=== PATIENT | female | born 1975 ===

== ENCOUNTER 2018-10-30 09:02 | Emergency (ER) | payer OTHER ==
[2018-10-30 09:28] VITALS: TEMP 97.5
[2018-10-30] MEDS ORDERED: Sodium Chloride 0.9% 500 ML IV STA (09:32)
--- NOTE | 2018-10-30 09:37 | ED PDOC ---
Arrival/HPI - General Chief Complaint: Back Pain Historian: Patient - History of Present Illness Narrative History of Present Illness (Text): 10/30/18 09:36 43 y/o female, pmh including renal stone, allergic to iodine, c/o lt. flank pain on and off x 3 weeks. Aching pain, on and off, no fall or trauma, no night sweat, no fever or chills, no hematuria, no night sweat, no dizziness, no chest pain or shortness of breath, no palpitation, no other medical or psychological complaints. Past Medical History - Provider Review Nursing Documentation Reviewed: Yes - Cardiac Hx Cardiac Disorders: No - Pulmonary Hx Respiratory Disorders: No - Neurological Hx Neurological Disorder: No - HEENT Hx HEENT Disorder: No - Renal Hx Renal Disorder: Yes Hx Kidney Stones: Yes - Endocrine/Metabolic Hx Endocrine Disorders: No - Hematological/Oncological Hx Blood Disorders: No - Integumentary Hx Dermatological Disorder: No - Musculoskeletal/Rheumatological Hx Musculoskeletal Disorders: Yes Hx Back Pain: Yes - Gastrointestinal Hx Gastrointestinal Disorders: Yes Hx Gall Bladder Disease: Yes - Genitourinary/Gynecological Hx Genitourinary Disorders: Yes Hx Bladder Stone: Yes - Psychiatric Hx Psychophysiologic Disorder: No Hx Substance Use: No - Anesthesia Hx Anesthesia: No Hx Anesthesia Reactions: No Hx Malignant Hyperthermia: No Family/Social History - Physician Review Nursing Documentation Reviewed: Yes Family/Social History: Unknown Family HX Smoking Status: Never Smoked Hx Alcohol Use: Yes Frequency of alcohol use: Socially Hx Substance Use: No Allergies/Home Meds Allergies/Adverse Reactions: Allergies iodine Allergy (Verified 10/30/18 09:28) RASH Review of Systems - Review of Systems Constitutional: absent: Fatigue, Fevers Eyes: absent: Vision Changes ENT: absent: Hearing Changes Respiratory: absent: SOB, Cough Cardiovascular: absent: Chest Pain Gastrointestinal: Other (+lt. flank pain). absent: Abdominal Pain, Nausea, Vomiting Musculoskeletal: absent: Arthralgias, Back Pain, Neck Pain, Joint Swelling, Myalgias Skin: absent: Rash, Pruritis Neurological: absent: Headache, Dizziness Psychiatric: absent: Anxiety, Depression, Suicidal Ideation Physical Exam Vital Signs Reviewed: Yes Vital Signs Temp Pulse Resp BP Pulse Ox 10/30/18 09:20 97.5 F L 77 19 146/92 H 100 10/30/18 09:02 97.5 F L 77 19 146/92 H 100 Temperature: Afebrile Blood Pressure: Hypertensive Pulse: Regular Respiratory Rate: Normal Appearance: Positive for: Well-Appearing, Non-Toxic, Comfortable Pain Distress: Moderate Mental Status: Positive for: Alert and Oriented X 3 - Systems Exam Head: Present: Atraumatic, Normocephalic Pupils: Present: PERRL Extroacular Muscles: Present: EOMI Conjunctiva: Present: Normal Mouth: Present: Moist Mucous Membranes Neck: Present: Normal Range of Motion Respiratory/Chest: Present: Clear to Auscultation, Good Air Exchange. No: Respiratory Distress, Accessory Muscle Use Cardiovascular: Present: Regular Rate and Rhythm, Normal S1, S2. No: Murmurs Abdomen: Present: Tenderness (lt. cva mildly), Normal Bowel Sounds. No: Distention, Peritoneal Signs, Rebound, Guarding, McBurney's Point Tender, Rovsing's Sign Present, Scars Back: Present: Normal Inspection Upper Extremity: Present: Normal Inspection. No: Cyanosis, Edema Lower Extremity: Present: Normal Inspection. No: Edema Neurological: Present: GCS=15, CN II-XII Intact, Speech Normal Skin: Present: Warm, Dry, Normal Color. No: Rashes Psychiatric: Present: Alert, Oriented x 3, Normal Insight, Normal Concentration Medical Decision Making ED Course and Treatment: 10/30/18 09:38 -labs -CT abdomen and pelvis -IVF toradol -Observe and reassess 10/30/18 13:29 -Urine hcg is negative -UA show no bacteria UTI but there is incidental yeast, diflucan ordered -Labs are nonsignificant except wbc 12.8 -CT abdomen and pelvis Obstructing 6 mm calculus at left ureteropelvic junction with mild left hydronephrosis. Additional minor findings as above. -Pt. feels much better after pain medication and IVF, request to be discharged home. -Paging Dr. Katherine Zambrano for consult. 10/30/18 14:02 -I spoke Dr. Katherine zambrano, discussed about the case/labs/radiology result, he recommend to discharge home and tell the patient to see him tonight by calling him as well. Face sheet faxed to him as well. -Discharge home with macrobid, flomax, percocet for severe pain, strainer, stay hydrated, follow up with your own pmd within 2 days, call Dr. Zambrano [phone] as he is expecting to see you this evening for your kidney stone, return to the ER for any new or worsening signs or symptoms. - RAD Interpretation Radiology Orders: 10/30/18 09:32 ABD & PELVIS W/O PO OR IV CONT [CT] Stat Date of service: 10/30/2018 PROCEDURE: CT Abdomen and Pelvis without intravenous contrast HISTORY: lt. flank pain for couple weeks COMPARISON: None. TECHNIQUE: Without contrast.. Contrast dose: 0 Radiation dose: Total exam DLP = 1468.17 mGy-cm. This CT exam was performed using one or more of the following dose reduction techniques: Automated exposure control, adjustment of the mA and/or kV according to patient size, and/or use of iterative reconstruction technique. FINDINGS: LOWER THORAX: Unremarkable. LIVER: Unremarkable. No gross lesion or ductal dilatation. GALLBLADDER AND BILE DUCTS: Cholecystectomy PANCREAS: Unremarkable SPLEEN: Unremarkable. ADRENALS: Unremarkable. No mass. KIDNEYS AND URETERS: Mild left hydronephrosis. 6 mm obstructing calculus at left ureteropelvic junction. No right hydronephrosis. No hydroureter. There is a 2 mm nonobstructing right lower pole renal calculus. VASCULATURE: Unremarkable. No aortic aneurysm. No aortic atherosclerotic calcification or mural plaque present. BOWEL: No bowel obstruction. Mild sigmoid diverticulosis. No evidence of diverticulitis. APPENDIX: Unremarkable. Normal appendix. PERITONEUM: Unremarkable. No free fluid. No free air. LYMPH NODES: Unremarkable. No enlarged lymph nodes. BLADDER: Unremarkable. REPRODUCTIVE: Status post hysterectomy. Left ovarian cyst, 2.3 cm. Likely physiologic. BONES: No acute fracture. OTHER FINDINGS: None. IMPRESSION: Obstructing 6 mm calculus at left ureteropelvic junction with mild left hydronephrosis. Additional minor findings as above. Therapy Site Coordinator: Radiologist - Medication Orders Current Medication Orders: Sodium Chloride (Sodium Chloride 0.9%) 500 mls @ 999 mls/hr IV .Q31M STA Stop: 10/30/18 10:02 Ketorolac Tromethamine (Toradol) 30 mg IVP STAT STA Stop: 10/30/18 09:33 - PA / ENTERPRISE APPLICATION ANALYST / Resident Statement MD/DO has reviewed & agrees with the documentation as recorded. Disposition/Present on Arrival - Present on Arrival Any Indicators Present on Arrival: No History of DVT/PE: No History of Uncontrolled Diabetes: No Urinary Catheter: No History of Decub. Ulcer: No History Surgical Site Infection Following: None - Disposition Have Diagnosis and Disposition been Completed?: Yes Diagnosis: Ureter colic, Hydronephrosis Disposition: HOME/ ROUTINE Disposition Time: 13:30 Patient Plan: Discharge Patient Problems: Current Active Problems Problem Status Onset Ureter colic Acute Hydronephrosis Acute Condition: IMPROVED Discharge Instructions (ExitCare): Renal Colic Additional Instructions: -Discharge home with macrobid, flomax, percocet for severe pain, strainer, stay hydrated, follow up with your own pmd within 2 days, call Dr. Zambrano [phone] as he is expecting to see you this evening for your kidney stone, return to the ER for any new or worsening signs or symptoms. Prescriptions: Nitrofurantoin Macrocrystals [Macrobid] 100 mg PO BID #20 cap oxyCODONE/Acetaminophen [Percocet 5/325 mg Tab] 1 tab PO QID PRN #16 tab PRN Reason: Other Tamsulosin HCl [Flomax] 0.4 mg PO DAILY #10 cap.er.24h Referrals: PCP,NO [Primary Care Provider] - Follow up with primary Hitesh Zambrano MD [Staff Provider] - Follow up with primary [facility] [place] [Outside] - Follow up with primary Forms: [employer] (Georgian), WORK NOTE
[2018-10-30 10:06] LABS: URINE BILIRUBIN NEGATIVE (NEGATIVE); URINE BLOOD SMALL (NEGATIVE); URINE COLOR YELLOW (YELLOW); URINE GLUCOSE (UA) NEGATIVE (NEGATIVE); URINE LEUKOCYTE ESTERASE NEGATIVE Leu/uL (NEGATIVE); URINE PROTEIN 100 mg/dL (<30 mg/dL)
[2018-10-30 10:07] LABS: URINE APPEARANCE CLEAR (CLEAR)
[2018-10-30 10:12] LABS: URINE AMORPHOUS SEDIMENT FEW /hpf; URINE BACTERIA MANY /hpf
[2018-10-30 10:14] LABS: URINE EPITHELIAL CELLS MANY /hpf (0-5)
[2018-10-30 10:54] LABS: BASO # 0.02 K/mm3 (0.0-2.0); BASO % 0.2 % (0.0-3.0); EOS % 0.2 % (1.5-5.0); HEMOGLOBIN 13.3 g/dL (12.0-16.0); LYMPH # 1.2 (1.2-3.4); LYMPH % 9.7 % (22.0-35.0); MEAN CELL VOLUME 88.4 fl (80.0-105.0); MEAN CORPUSCULAR HGB CONC 32.8 g/dl (31.0-37.0); MEAN PLATELET VOLUME 9.2 fl (7.0-11.0); MONO # 0.8 (0.1-0.6); MONO % 6.2 % (1.0-6.0); RBC 4.58 10^6/uL (3.5-6.1); RED CELL DISTRIBUTION WIDTH 12.9 % (11.5-14.5); WHITE BLOOD COUNT 12.8 10^3/uL (4.5-11.0)
[2018-10-30 11:06] VITALS: RESP 18
[2018-10-30 11:07] LABS: ALB/GLOB RATIO 1.1 (1.1-1.8); ALBUMIN 4.1 g/dL (3.0-4.8); ALT/SGPT 18 U/L (7-56); AST/SGOT 21 U/L (14-36); BLOOD UREA NITROGEN 10 mg/dL (7-21); CALCIUM 9.1 mg/dL (8.4-10.5); GFR NON-AFRICAN AMERICAN > 60; LIPASE 58 U/L (23-300)
[2018-10-30 11:16] LABS: TROPONIN I < 0.01 ng/mL
--- NOTE | 2018-10-30 11:44 | CT ---
Date of service: 10/30/2018 PROCEDURE: CT Abdomen and Pelvis without intravenous contrast HISTORY: lt. flank pain for couple weeks COMPARISON: None. TECHNIQUE: Without contrast.. Contrast dose: 0 Radiation dose: Total exam DLP = 1468.17 mGy-cm. This CT exam was performed using one or more of the following dose reduction techniques: Automated exposure control, adjustment of the mA and/or kV according to patient size, and/or use of iterative reconstruction technique. FINDINGS: LOWER THORAX: Unremarkable. LIVER: Unremarkable. No gross lesion or ductal dilatation. GALLBLADDER AND BILE DUCTS: Cholecystectomy PANCREAS: Unremarkable SPLEEN: Unremarkable. ADRENALS: Unremarkable. No mass. KIDNEYS AND URETERS: Mild left hydronephrosis. 6 mm obstructing calculus at left ureteropelvic junction. No right hydronephrosis. No hydroureter. There is a 2 mm nonobstructing right lower pole renal calculus. VASCULATURE: Unremarkable. No aortic aneurysm. No aortic atherosclerotic calcification or mural plaque present. BOWEL: No bowel obstruction. Mild sigmoid diverticulosis. No evidence of diverticulitis. APPENDIX: Unremarkable. Normal appendix. PERITONEUM: Unremarkable. No free fluid. No free air. LYMPH NODES: Unremarkable. No enlarged lymph nodes. BLADDER: Unremarkable. REPRODUCTIVE: Status post hysterectomy. Left ovarian cyst, 2.3 cm. Likely physiologic. BONES: No acute fracture. OTHER FINDINGS: None. IMPRESSION: Obstructing 6 mm calculus at left ureteropelvic junction with mild left hydronephrosis. Additional minor findings as above.
[2018-10-30] MEDS ORDERED: Sodium Chloride 0.9% 1,000 ML IV STA (12:09)
[2018-10-30] MEDS ORDERED: Morphine 4 mg/ml ISec IVP STA (12:09)
[2018-10-30 14:33] VITALS: BP 134/80; PULSE 79; O2SAT 99
== END 2018-10-30 14:32 | disposition home or self-care (01) ==
LOC: ED 09:02
DX: N13.2 Hydronephrosis with renal and ureteral calculous obstruction (principal)
CPT/HCPCS: 74176; 80053; 81001; 81025; 83690; 83735; 84484; 85025; 96361; 96374; 99283; J2270; J7030; J7040